=== PATIENT | female | born 1950 | race Caucasian/White ===

== ENCOUNTER 2017-08-17 12:12 | Inpatient (IN) ==
--- NOTE | 2017-08-17 11:23 | Anesthesia Evaluation PreOp ---
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 HX Other Medical History: GERD (large hiatal hernia) Anesthesia History: Past Anesthesia (vanessa, TEE, breast bx, bladder suspension) , Problems (severe PONV) : No Alcohol Use: none Drug use: none Medications and Allergies Albuterol Sulfate [Proair Hfa] 2 puff IH Q4H PRN 09/29/16 [History] Nitroglycerin [Nitrostat] 0.4 mg SL AD PRN 12/08/16 [History] Pantoprazole Sodium 40 mg PO BID 12/08/16 [History] Fluticasone Propionate Nasal [Flonase] 1 spr NS DAILY 06/08/17 [History] Montelukast [Singulair] 10 mg PO HS 06/08/17 [History] Cholecalciferol (D-3) [Vitamin D] 2,000 unit PO DAILY 08/17/17 [History] Loratadine [Claritin] 10 mg PO DAILY 08/17/17 [History] 3 Allergy/AdvReac Type Severity Reaction Status Date / Time Penicillins [PCN] Allergy See Verified 08/17/17 12:31 Comments - Meds/Allergy Pre-op Review Medications Reviewed: Yes Allergies Reviewed: Yes Beta Blockers on Current Med List: No Anesthesia Exam Selected Entries 08/17/17 12:33 Temperature 98.2 F Temperature Source Oral Pulse Rate 89 Respiratory Rate 18 Blood Pressure 126/81 O2 Sat by Pulse Oximetry 97 Weight: 55kg NPO (# of Hours): 8 - HEENT Pupil (Motor): EOMI Mallampati: II Teeth: Edentulous Oral Opening: Greater than 3 - SERVICES DELIVERY DRIVER LOC: Oriented SERVICES DELIVERY DRIVER Motor: Normal RUE, Normal LUE, Normal RLE, Normal LLE, Normal Face SERVICES DELIVERY DRIVER Sensory: Normal: RUE, LUE, RLE, LLE, Face - Cardiac Rhythm: Regular Murmur: None - Pulmonary Breath Sounds: bilateral Clear Respiratory Effort: Symmetrical Anesthesia Assess/Plan ASA Score: 2 Modified Java Scale for Level of Consciousness: Cooperative, oriented, and tranquil Anesthetic Plan: General Monitoring Plan: Standard Monitors Recovery Plan: PACU (agrees to GA)
[2017-08-17] MEDS ORDERED: Lidocaine -MPF 1% 2 ML VIAL ID ONE (12:51)
[2017-08-17] MEDS ORDERED: Albuterol 2.5 MG/3 ML NEBULIZER IH ONE (12:51)
[2017-08-17] MEDS ORDERED: CeFAZolin Syr 2,000MG/20 ML 2,000 MG/20 ML SYRINGE IVPB ONE (12:51)
[2017-08-17] MEDS ORDERED: Scopolamine Patch 1.5 MG PATCH.TD72 TD ONE (12:58)
[2017-08-17] MEDS ORDERED: Ringers Solution, Lactated 1,000 ML IVC SCH ×2 (13:00→18:47)
--- NOTE | 2017-08-17 14:07 | History & Physical Report ---
Date of Encounter: 08/17/17 Time of Encounter: 14:05 24 Hour HP Update - Instructions Instructions: If the History and Physical is less than 30 days old and was completed prior to A.M. admission and or procedure and has NOT been updated on calendar day of procedure please complete this update prior to performing procedure. - Update Patient reports changes in Medical Condition: No Changes in examination, assessment, or condition: No Changes in Medication: No Preop tests/diagnostics Reviewed: Yes Surgery Remains Indicated: Yes Consent for Planned Operative Procedure(s) Verified: Yes - Pre-Operative Checklist Preoperative Checklist Indicated: Yes Prophylactic Antibiotic Ordered: Yes Home Medications Include Beta Serjio: No Is VTE Prophylaxis Indicated?: Yes
[2017-08-17] MEDS ORDERED: *HR* FentaNYL (PF) 100 MCG/2 ML VIAL ONE (14:19)
[2017-08-17] MEDS ORDERED: *HR* Midazolam HCl 2 MG/2 ML VIAL ONE (14:19)
[2017-08-17] MEDS ORDERED: *HR* Propofol 200 MG/20 ML VIAL IVP ONE (14:20)
[2017-08-17] MEDS ORDERED: *HR* Succinylcholine 200 MG/10 ML VIAL IVP ONE (14:21)
[2017-08-17] MEDS ORDERED: *HR* Rocuronium Bromide 50 MG/5 ML VIAL ONE (14:21)
[2017-08-17] MEDS ORDERED: Lidocaine -MPF 2% 2 ML VIAL ONE (14:21)
[2017-08-17] MEDS ORDERED: Lidocaine -MPF 4% 5 ML AMPUL ONE (14:24)
[2017-08-17] MEDS ORDERED: Acetaminophen IV 1,000 MG/100 ML INFUS..BTL ONE (14:27)
[2017-08-17] MEDS ORDERED: CefOXitin 1,000 MG VIAL ONE (14:33)
[2017-08-17] MEDS ORDERED: Ondansetron 4 MG/2 ML VIAL ONE ×2 (14:59→17:41)
[2017-08-17] MEDS ORDERED: Haloperidol Lactate 5 MG/ML VIAL IVP ONE ×2 (15:00→18:47)
[2017-08-17] MEDS ORDERED: Propofol 500 MG/50 ML INFUS..BTL ONE (15:01)
[2017-08-17] MEDS ORDERED: Dexamethasone 4 MG/ML VIAL ONE (15:10)
[2017-08-17] MEDS ORDERED: *HR* PHENYLEPHRINE 1,000 MCG/10 ML SYRINGE IVP ONE (15:11)
[2017-08-17] MEDS ORDERED: Ketorolac 30 MG/ML VIAL ONE (17:13)
[2017-08-17] MEDS ORDERED: *HR* HYDROmorphone (PF) 1 MG/ML SYRINGE IVP PRN ×2 (17:20→18:47)
[2017-08-17] MEDS ORDERED: *HR* Promethazine 25 MG/ML VIAL IVP PRN ×2 (17:20→18:47)
[2017-08-17] MEDS ORDERED: *HR* OxyCODONE Immed Rel 5 MG TABLET PO PRN ×2 (17:20→18:47)
[2017-08-17] MEDS ORDERED: *HR* Labetalol 20 MG/4 ML SYRINGE IVP PRN (17:20)
[2017-08-17] MEDS ORDERED: Neostigmine Methylsulfate 3 MG/3 ML SYRINGE ONE (17:22)
[2017-08-17] MEDS ORDERED: Ondansetron 4 MG/2 ML VIAL IVP PRN (17:38)
[2017-08-17] MEDS ORDERED: OXYCODONE Oral CONC 10 MG/0.5 ML ORAL.SYG SL PRN (17:38)
[2017-08-17] MEDS ORDERED: 0.9 % Sodium Chloride 1,000 ML IVC SCH (17:45)
--- NOTE | 2017-08-17 17:45 | Operative Note ---
Date of procedure: 08/17/17 Pre-op diagnosis: Paraesophageal hernia, recurrent Post-op diagnosis: same Procedure: #1 open repair of paraesophageal hiatal hernia #2 takedown of Jaida fundoplication #3 redo Jaida fundoplication Anesthesia: TRELL Surgeon: Kulwinder Archer Was there an medical assistant secretary present: Yes Endodontics Dentist: Esther Castaneda Estimated blood loss (cc): 150 Specimen: None Condition: stable Disposition: PACU Procedure in Detail: After informed consent patient was taken to the major operating suite placed in the supine position given adequate general endotracheal anesthesia. The abdomen is prepped and draped in sterile fashion utilizing ChloraPrep and standard draping techniques. Timeout was taken and the patient is identified. Made an upper abdominal midline incision. I entered the abdomen. I performed lysis of adhesions between the stomach and the lateral segment of left lobe liver and some minor adhesions to the anterior abdominal wall. I divided the triangular ligament and folded the lateral segment of the left lobe inferiorly and laterally. I then spent one half hours dividing adhesions between the previous Jaida fundoplication and the right and left crura of the diaphragm. I also made a complete reduction of the paraesophageal hernia out of the chest. A lighted 50-[place] bougie was used to help identify and avoid injury to the esophagus. At the end of the one half hours of dissection I had taken down the last Jaida fundoplication and identified the right and left crura of the diaphragm. I then performed repair of the recurrent hiatal hernia with 3 stitches of 2-0 Ethibond with pledgets. 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 3 stitches were used 2 create a floppy Jaida fundoplication around a 50-[place] bougie. 2 shoulder stitches of 2-0 Ethibond were placed. Total blood loss 150 mL. The patient had an excellent technical result. Midline was closed with looped 0 PDS. The skin was closed with Vicryl and skin clips.
[2017-08-17] MEDS ORDERED: *HR* Heparin 5,000 UNIT/ML VIAL SQ SCH (18:00)
[2017-08-17] MEDS ORDERED: *HR* Labetalol 100 MG/20 ML MDV IVP PRN (18:47)
--- NOTE | 2017-08-17 18:53 | Anesthesia Evaluation Post Op ---
Date of Encounter: 08/17/17 Time of Encounter: 18:30 - Vital Signs Vital Signs: Vital Signs/O2 Sat/Glucose, Most Current Temp Pulse Resp BP Pulse Ox 08/17/17 18:19 98.5 F 75 20 107/78 100 08/17/17 18:09 98.5 F 78 20 115/72 99 08/17/17 17:59 79 20 115/64 98 08/17/17 17:49 82 20 110/71 96 08/17/17 17:39 99 F 87 16 129/78 100 - Lungs Lungs: Clear Ascult./Percussion - Airway Airway: Non-obstructed - Cardiovascular Regular Rate - Mental Status Mental Status: Alert & Oriented, Answers Appropriately - Pain Pain Scale: 0 - Nausea Vomiting Nausea Vomiting: Not Present - Hydration Hydration: NPO - Discharge PostOp Status: Transfer Patient to floor
[2017-08-17] MEDS: 0.9 % Sodium Chloride 1,000 ML IVC SCH (22:00)
[2017-08-17] MEDS: CeFAZolin Pre 2,000 MG/100 ML 2,000 MG/100 ML BAG IVPB SCH (23:59)
[2017-08-18] MEDS ORDERED: CeFAZolin Pre 2,000 MG/100 ML 2,000 MG/100 ML BAG IVPB SCH
[2017-08-18 05:44] LABS: Basophils % 0.3 %; Hematocrit 32.7 % (35.3-44.9); Immature Granulocytes % 0.5 % (0-4); Lymphocytes # 1.1 K/mcL (0.6-4.6); Lymphocytes % 10.5 %; Mean Corpuscular HGB Conc 33.6 g/dL (31.6-35.5); Mean Corpuscular Hemoglobin 31.9 pg (28.0-33.3); Mean Corpuscular Volume 94.8 fL (83.0-100.0); Mean Platelet Volume 9.9 fL (9.4-12.4); Monocytes # 0.8 K/mcL (0.0-1.3); Monocytes % 7.2 %; Neutrophils # 8.5 K/mcL (1.6-8.9); Platelet Count 239 K/mcL (140-400); Red Blood Count 3.45 M/mcL (3.82-4.97); Red Cell Distribution Width 13.4 % (11.5-14.5); Segmented Neutrophils % 81.5 %
[2017-08-18 05:51] LABS: BUN/Creatinine Ratio 19 (6-26); Blood Urea Nitrogen 15 mg/dL (8-23); Carbon Dioxide 26 mEq/L (23-29); Chloride 106 mEq/L (98-107); Glucose 117 mg/dL (70-105); Osmolality,Calculated 290 (280-300); Potassium 4.2 mEq/L (3.5-5.1); Sodium 139 mEq/L (136-145); eGFR For African Americans > 60 (> 60); eGFR For Non-African Americans > 60 (> 60)
[2017-08-18] MEDS: CeFAZolin Pre 2,000 MG/100 ML 2,000 MG/100 ML BAG IVPB SCH (06:43)
[2017-08-18] MEDS: *HR* Heparin 5,000 UNIT/ML VIAL SQ SCH ×2 (06:43→17:58)
--- NOTE | 2017-08-18 08:30 | General Surgery Progress Note ---
<Braulio Lucio - Last Filed: 08/18/17 12:02> Date of Encounter: 08/18/17 Time of Encounter: 06:30 - Assessment and Plan (1) Status post Jaida fundoplication Current Visit: Yes Status: Acute POD#1. open repair of paraesophageal hiatal hernia, takedown of Jaida fundoplication, redo Jaida fundoplication Pain well-controlled. Afebrile overnight. Vital signs stable. Patient started on clear liquid diets overnight and able to tolerate. - Continue clear liquid diet. Plan to advance to full liquid diet tomorrow if she continues to tolerate. NO CARBONATED DRINKS. - Continue current pain management regimen. - Continue IV fluids. (2) DVT prophylaxis Current Visit: Yes Status: Acute - Heparin 5000 U SQ BID. Subjective Narrative: Patient says her abdominal pain is diffuse is about a 3 out of 10. Denies any fever or chills overnight. Denies any nausea or vomiting. Denies any chest pain or shortness of breath. Denies any headaches, dizziness, or lightheadedness. Denies having a bowel movement and denies passing gas. Objective VITAL SIGNS: Reviewed. See [facility] GENERAL: no apparent distress. HEENT: [Normocephalic, PER, EOMi, oropharynx pink/moist, no JVD noted.] CV: b/l rad pulses 2+, RRR, no murmurs or gallops, no JVD RESPIRATORY: CTAB without wheezes, rales, or rhonchi ABD: soft, non-tender, no rebound/guarding/rigidity, no peritoneal signs. Hypoactive bowel sounds. INCISION: abdominal incision clean, dry, intact without purulence/bleeding/edema /rubor/calor EXTREMITY: grossly normal motor function, no pedal edema, peripheral pulses 2+ b /l NEUROLOGIC EXAM: AOx3, obeys commands, no speech deficits. PSYCHIATRIC: normal mood and affect SKIN: no gross lesions, rashes, or skin changes Vital Signs - Last 8 Hours Temp Pulse Resp BP Pulse Ox 08/18/17 06:33 98.2 F 78 15 110/74 97 08/18/17 03:43 98.5 F 81 16 127/82 98 Intake and Output 08/17/17 08/18/17 08/18/17 23:59 07:59 15:59 Intake Total 0 / 0 100 / 100 Output Total 150 / 150 100 / 100 Balance -150 / -150 0 / 0 Intake: IV Fluids 100 / 100 Ancef Premix 2,000 MG/100 ML 2, 100 / 100 000 mg In 100 ml @ 200 mls/hr IVPB Q8H [facility] Rx#:[id number] Oral 0 / 0 0 / 0 Output: Urine 0 / 0 Estimated Blood Loss 150 / 150 Catheter 100 / 100 Other: Weight 58 kg Patient Weight 08/18/17 23:59 Weight 58 kg - Labs 08/18/17 05:01 08/18/17 05:01 Diabetes panel 08/18/17 Range/Units 05:01 Sodium 139 (136-145) mEq/L Potassium 4.2 (3.5-5.1) mEq/L Chloride 106 (98-107) mEq/L Carbon Dioxide 26 (23-29) mEq/L BUN 15 (8-23) mg/dL Creatinine 0.78 (0.60-1.20) mg/dL Glucose 117 H (70-105) mg/dL Calcium 8.0 L (8.6-10.3) mg/dL Calcium panel 08/18/17 Range/Units 05:01 Calcium 8.0 L (8.6-10.3) mg/dL Pituitary panel 08/18/17 Range/Units 05:01 Sodium 139 (136-145) mEq/L Potassium 4.2 (3.5-5.1) mEq/L Chloride 106 (98-107) mEq/L Carbon Dioxide 26 (23-29) mEq/L BUN 15 (8-23) mg/dL Creatinine 0.78 (0.60-1.20) mg/dL Glucose 117 H (70-105) mg/dL Calcium 8.0 L (8.6-10.3) mg/dL Adrenal panel 08/18/17 Range/Units 05:01 Sodium 139 (136-145) mEq/L Potassium 4.2 (3.5-5.1) mEq/L Chloride 106 (98-107) mEq/L Carbon Dioxide 26 (23-29) mEq/L BUN 15 (8-23) mg/dL Creatinine 0.78 (0.60-1.20) mg/dL Glucose 117 H (70-105) mg/dL Calcium 8.0 L (8.6-10.3) mg/dL - VTE Documentation of Mechanical Device: Intermittent pneumatic compression device Consult Discharge Plan - Plan Referrals: Yesy Cardenas CNP [Advanced Practice Nurse] - 08/31/17 9:00 am <SuziHeathern Sonam - Last Filed: 08/18/17 15:35> Date of Encounter: 08/18/17 Objective Vital Signs - Last 8 Hours Temp Pulse Resp BP Pulse Ox 08/18/17 15:26 98.6 F 84 18 108/74 95 08/18/17 10:15 98.4 F 84 15 104/66 96 Intake and Output 08/17/17 08/18/17 08/18/17 23:59 07:59 15:59 Intake Total 0 / 0 100 / 100 1640 / 1640 Output Total 150 / 150 100 / 100 Balance -150 / -150 0 / 0 1640 / 1640 Intake: IV Fluids 100 / 100 1000 / 1000 0.9 % Sodium Chloride 1,000 ML 1000 / 1000 @ 75 mls/hr IVC .[id number] [facility] Rx #:[id number] Ancef Premix 2,000 MG/100 ML 2, 100 / 100 000 mg In 100 ml @ 200 mls/hr IVPB Q8H [facility] Rx#:[id number] Oral 0 / 0 0 / 0 640 / 640 Output: Urine 0 / 0 Estimated Blood Loss 150 / 150 Catheter 100 / 100 Other: Meal Clears Weight 58 kg Patient Weight 08/18/17 23:59 Weight 58 kg - Labs 08/18/17 05:01 08/18/17 05:01 Diabetes panel 08/18/17 Range/Units 05:01 Sodium 139 (136-145) mEq/L Potassium 4.2 (3.5-5.1) mEq/L Chloride 106 (98-107) mEq/L Carbon Dioxide 26 (23-29) mEq/L BUN 15 (8-23) mg/dL Creatinine 0.78 (0.60-1.20) mg/dL Glucose 117 H (70-105) mg/dL Calcium 8.0 L (8.6-10.3) mg/dL Calcium panel 08/18/17 Range/Units 05:01 Calcium 8.0 L (8.6-10.3) mg/dL Pituitary panel 08/18/17 Range/Units 05:01 Sodium 139 (136-145) mEq/L Potassium 4.2 (3.5-5.1) mEq/L Chloride 106 (98-107) mEq/L Carbon Dioxide 26 (23-29) mEq/L BUN 15 (8-23) mg/dL Creatinine 0.78 (0.60-1.20) mg/dL Glucose 117 H (70-105) mg/dL Calcium 8.0 L (8.6-10.3) mg/dL Adrenal panel 08/18/17 Range/Units 05:01 Sodium 139 (136-145) mEq/L Potassium 4.2 (3.5-5.1) mEq/L Chloride 106 (98-107) mEq/L Carbon Dioxide 26 (23-29) mEq/L BUN 15 (8-23) mg/dL Creatinine 0.78 (0.60-1.20) mg/dL Glucose 117 H (70-105) mg/dL Calcium 8.0 L (8.6-10.3) mg/dL - Attending Attestation I examined this patient and my medical decision-making was reviewed with the Resident Physician. I agree with the documented findings, disposition and treatment plan as described except to the extent set forth below. The patient is seen and evaluated on morning rounds with resident. She is doing surprisingly well and tolerating clear liquids. We will continue with supportive care and pain management. Advance diet as tolerated. Kulwinder Archer MD FACS
[2017-08-18] MEDS: 0.9 % Sodium Chloride 1,000 ML IVC SCH (13:23)
[2017-08-18] MEDS: OXYCODONE Oral CONC 10 MG/0.5 ML ORAL.SYG SL PRN ×2 (16:19→21:07)
[2017-08-18] MEDS: Ondansetron 4 MG/2 ML VIAL IVP PRN (16:19)
[2017-08-19] MEDS: Ondansetron 4 MG/2 ML VIAL IVP PRN ×3 (02:51→21:09)
[2017-08-19] MEDS: 0.9 % Sodium Chloride 1,000 ML IVC SCH ×2 (03:05→16:25)
[2017-08-19 05:36] LABS: Basophils % 0.3 %; Eosinophils # 0.1 K/mcL (0.0-0.6); Eosinophils % 1.4 %; Hemoglobin 10.2 g/dL (11.5-15.4); Immature Granulocytes % 0.4 % (0-4); Lymphocytes # 0.8 K/mcL (0.6-4.6); Lymphocytes % 10.8 %; Mean Corpuscular HGB Conc 32.9 g/dL (31.6-35.5); Mean Corpuscular Hemoglobin 31.6 pg (28.0-33.3); Mean Platelet Volume 9.6 fL (9.4-12.4); Monocytes # 0.5 K/mcL (0.0-1.3); Monocytes % 6.1 %; Platelet Count 221 K/mcL (140-400); Red Blood Count 3.23 M/mcL (3.82-4.97); Red Cell Distribution Width 13.7 % (11.5-14.5)
[2017-08-19 05:55] LABS: BUN/Creatinine Ratio 13 (6-26); Blood Urea Nitrogen 7 mg/dL (8-23); Carbon Dioxide 28 mEq/L (23-29); Chloride 107 mEq/L (98-107); Glucose 123 mg/dL (70-105); Osmolality,Calculated 285 (280-300); Potassium 3.7 mEq/L (3.5-5.1); Sodium 138 mEq/L (136-145); eGFR For African Americans > 60 (> 60); eGFR For Non-African Americans > 60 (> 60)
[2017-08-19] MEDS: *HR* Heparin 5,000 UNIT/ML VIAL SQ SCH ×2 (06:28→18:28)
[2017-08-19] MEDS: OXYCODONE Oral CONC 10 MG/0.5 ML ORAL.SYG SL PRN ×2 (09:10→16:25)
--- NOTE | 2017-08-19 11:09 | General Surgery Progress Note ---
<CiarrachuckBraulio jacobo - Last Filed: 08/19/17 15:38> Date of Encounter: 08/19/17 Time of Encounter: 08:15 - Assessment and Plan (1) Status post Jaida fundoplication Current Visit: Yes Status: Acute POD#2. open repair of paraesophageal hiatal hernia, takedown of Jaida fundoplication, redo Jaida fundoplication Pain well-controlled. Afebrile overnight. Vital signs stable. Patient on clear liquid diets. - Continue clear liquid diet. NO CARBONATED DRINKS. - Colace 100 mg BID. - Nicotine patch. - Continue current pain management regimen. - Continue IV fluids. (2) DVT prophylaxis Current Visit: Yes Status: Acute - Heparin 5000 U SQ BID. Subjective Narrative: Patient says that she has minor abdominal discomfort over her incisional area. She admits to some nausea but denies any vomiting. Denies any chest pain or shortness of breath. Denies any fever or chills. Denies any bowel movement or passing gas. Objective VITAL SIGNS: Reviewed. See [facility] GENERAL: No apparent distress. HEENT: [Normocephalic, PER, EOMI, oropharynx pink/moist, no JVD noted.] CV: b/l rad pulses 2+, RRR, no murmurs or gallops, no JVD RESPIRATORY: CTAB without wheezes, rales, or rhonchi ABD: soft, minor tenderness to palpation over incisional area, no rebound/ guarding/rigidity, no peritoneal signs. Hypoactive bowel sounds present. INCISION: abdominal incision clean, dry, intact without purulence/bleeding/edema /rubor/calor EXTREMITY: grossly normal motor function, no pedal edema, peripheral pulses 2+ b /l NEUROLOGIC EXAM: AOx3, obeys commands, no speech deficits. PSYCHIATRIC: normal mood and affect SKIN: no gross lesions, rashes, or skin changes Vital Signs - Last 8 Hours Temp Pulse Resp BP Pulse Ox 08/19/17 11:01 98.1 F 79 16 134/83 90 08/19/17 07:46 98.6 F 83 14 129/81 91 08/19/17 03:17 98.5 F 88 17 133/82 93 Intake and Output 08/18/17 08/19/17 08/19/17 23:59 07:59 15:59 Intake Total 240 / 240 1120 / 1120 60 / 60 Output Total 700 / 700 0 / 0 200 / 200 Balance -460 / -460 1120 / 1120 -140 / -140 Intake: IV Fluids 1000 / 1000 0.9 % Sodium Chloride 1,000 ML 1000 / 1000 @ 75 mls/hr IVC .[id number] [facility] Rx #:[id number] Oral 240 / 240 120 / 120 60 / 60 Output: Urine 0 / 0 200 / 200 Catheter 700 / 700 Other: Meal Dinner Percent of Meal Consumed 100% # Voids 2 Weight 58 kg Patient Weight 08/19/17 23:59 Weight 58 kg - Labs 08/19/17 05:21 08/19/17 05:21 Diabetes panel 08/19/17 Range/Units 05:21 Sodium 138 (136-145) mEq/L Potassium 3.7 (3.5-5.1) mEq/L Chloride 107 (98-107) mEq/L Carbon Dioxide 28 (23-29) mEq/L BUN 7 L (8-23) mg/dL Creatinine 0.53 L (0.60-1.20) mg/dL Glucose 123 H (70-105) mg/dL Calcium 8.0 L (8.6-10.3) mg/dL Calcium panel 08/19/17 Range/Units 05:21 Calcium 8.0 L (8.6-10.3) mg/dL Pituitary panel 08/19/17 Range/Units 05:21 Sodium 138 (136-145) mEq/L Potassium 3.7 (3.5-5.1) mEq/L Chloride 107 (98-107) mEq/L Carbon Dioxide 28 (23-29) mEq/L BUN 7 L (8-23) mg/dL Creatinine 0.53 L (0.60-1.20) mg/dL Glucose 123 H (70-105) mg/dL Calcium 8.0 L (8.6-10.3) mg/dL Adrenal panel 08/19/17 Range/Units 05:21 Sodium 138 (136-145) mEq/L Potassium 3.7 (3.5-5.1) mEq/L Chloride 107 (98-107) mEq/L Carbon Dioxide 28 (23-29) mEq/L BUN 7 L (8-23) mg/dL Creatinine 0.53 L (0.60-1.20) mg/dL Glucose 123 H (70-105) mg/dL Calcium 8.0 L (8.6-10.3) mg/dL - VTE Documentation of Mechanical Device: Intermittent pneumatic compression device Consult Discharge Plan - Plan Referrals: Yesy Cardenas, COR[employer]UAL [employer]S THERAPIST [Advanced Practice Nurse] - 08/31/17 9:00 am <Ludivina Villalpando - Last Filed: 08/19/17 16:03> Date of Encounter: 08/19/17 Time of Encounter: 12:00 - Assessment and Plan (1) DVT prophylaxis Current Visit: Yes Status: Acute (2) Status post Jaida fundoplication Current Visit: Yes Status: Acute tolerating clears prn pain medication, decrease dose as pain controlled, if still gets nauseated will start percocet, ensure doesnt take on empty stomach ok nicotine patch ambulate IS gi/dvt prophylaxis Subjective Patient reports: no new complaints, still having pain, pain is less, tolerating liquids well, flatus, no bowel movement, afebrile Narrative: complains of nausea wiht pain medication despite taking zofran beforehand Objective Vital Signs - Last 8 Hours Temp Pulse Resp BP Pulse Ox 08/19/17 11:01 98.1 F 79 16 134/83 90 Intake and Output 08/18/17 08/19/17 08/19/17 23:59 07:59 15:59 Intake Total 240 / 240 1120 / 1120 60 / 60 Output Total 700 / 700 0 / 0 200 / 200 Balance -460 / -460 1120 / 1120 -140 / -140 Intake: IV Fluids 1000 / 1000 0.9 % Sodium Chloride 1,000 ML 1000 / 1000 @ 75 mls/hr IVC .[id number] [facility] Rx #:[id number] Oral 240 / 240 120 / 120 60 / 60 Output: Urine 0 / 0 200 / 200 Catheter 700 / 700 Other: Meal Dinner Percent of Meal Consumed 100% # Voids 2 Weight 58 kg Patient Weight 08/19/17 23:59 Weight 58 kg - General physical appearance well developed, well nourished, no distress - Eyes PERRL, normal ocular movement - ENT normal mucosa, normocephalic - Neck Neck exam: trachea midline - Respiratory normal expansion, normal respiratory effort - Cardiovascular Cardiovascular exam: Present: RRR - Abdomen Abdomen: Present: bowel sounds present, soft, tender (expected post op tenderness). Absent: distended, guarding, rebound - Incision Incision: Present: clean and dry, intact - Integumentary no rash, no growths - Neurologic normal coordination - Musculoskeletal normal posture - Psychiatric oriented to time, oriented to person, oriented to place, memory intact - Labs 08/19/17 05:21 08/19/17 05:21 Diabetes panel 08/19/17 Range/Units 05:21 Sodium 138 (136-145) mEq/L Potassium 3.7 (3.5-5.1) mEq/L Chloride 107 (98-107) mEq/L Carbon Dioxide 28 (23-29) mEq/L BUN 7 L (8-23) mg/dL Creatinine 0.53 L (0.60-1.20) mg/dL Glucose 123 H (70-105) mg/dL Calcium 8.0 L (8.6-10.3) mg/dL Calcium panel 08/19/17 Range/Units 05:21 Calcium 8.0 L (8.6-10.3) mg/dL Pituitary panel 08/19/17 Range/Units 05:21 Sodium 138 (136-145) mEq/L Potassium 3.7 (3.5-5.1) mEq/L Chloride 107 (98-107) mEq/L Carbon Dioxide 28 (23-29) mEq/L BUN 7 L (8-23) mg/dL Creatinine 0.53 L (0.60-1.20) mg/dL Glucose 123 H (70-105) mg/dL Calcium 8.0 L (8.6-10.3) mg/dL Adrenal panel 08/19/17 Range/Units 05:21 Sodium 138 (136-145) mEq/L Potassium 3.7 (3.5-5.1) mEq/L Chloride 107 (98-107) mEq/L Carbon Dioxide 28 (23-29) mEq/L BUN 7 L (8-23) mg/dL Creatinine 0.53 L (0.60-1.20) mg/dL Glucose 123 H (70-105) mg/dL Calcium 8.0 L (8.6-10.3) mg/dL Vital Signs Temp Pulse Resp BP Pulse Ox 08/19/17 11:01 98.1 F 79 16 134/83 90 08/19/17 07:46 98.6 F 83 14 129/81 91 08/19/17 03:17 98.5 F 88 17 133/82 93 08/18/17 19:00 98.3 F 85 16 105/71 94 Intake and Output 08/19/17 08/19/17 08/19/17 07:59 15:59 23:59 Intake Total 1120 / 1120 60 / 60 Output Total 0 / 0 200 / 200 Balance 1120 / 1120 -140 / -140 Intake: IV Fluids 1000 / 1000 0.9 % Sodium Chloride 1,000 ML 1000 / 1000 @ 75 mls/hr IVC .[id number] [facility] Rx #:[id number] Oral 120 / 120 60 / 60 Output: Urine 0 / 0 200 / 200 Other: # Voids 2 Weight 58 kg Patient Weight 08/19/17 23:59 Weight 58 kg - Attending Attestation I examined this patient and my medical decision-making was reviewed with the Resident Physician. I agree with the documented findings, disposition and treatment plan as described except to the extent set forth below.
[2017-08-19] MEDS: Nicotine 7 MG PATCH.TD24 TD SCH (13:09)
[2017-08-19] MEDS: *HR* Promethazine 25 MG/ML VIAL IVP PRN (16:25)
[2017-08-20] MEDS: OXYCODONE Oral CONC 10 MG/0.5 ML ORAL.SYG SL PRN ×4 (00:29→22:16)
[2017-08-20] MEDS: *HR* Promethazine 25 MG/ML VIAL IVP PRN ×2 (00:29→15:33)
[2017-08-20 03:36] LABS: Basophils % 0.3 %; Eosinophils # 0.1 K/mcL (0.0-0.6); Eosinophils % 1.2 %; Hematocrit 28.8 % (35.3-44.9); Hemoglobin 9.9 g/dL (11.5-15.4); Immature Granulocytes % 0.4 % (0-4); Lymphocytes # 1.1 K/mcL (0.6-4.6); Mean Corpuscular HGB Conc 34.4 g/dL (31.6-35.5); Mean Corpuscular Hemoglobin 33.1 pg (28.0-33.3); Mean Corpuscular Volume 96.3 fL (83.0-100.0); Mean Platelet Volume 10.1 fL (9.4-12.4); Monocytes # 0.6 K/mcL (0.0-1.3); Monocytes % 7.3 %; Platelet Count 207 K/mcL (140-400); Red Blood Count 2.99 M/mcL (3.82-4.97); Red Cell Distribution Width 13.4 % (11.5-14.5); Segmented Neutrophils % 76.8 %
[2017-08-20 04:15] LABS: BUN/Creatinine Ratio 11 (6-26); Blood Urea Nitrogen 6 mg/dL (8-23); Calcium 7.9 mg/dL (8.6-10.3); Carbon Dioxide 22 mEq/L (23-29); Chloride 107 mEq/L (98-107); Glucose 102 mg/dL (70-105); Osmolality,Calculated 280 (280-300); Potassium 3.9 mEq/L (3.5-5.1); Sodium 136 mEq/L (136-145); eGFR For African Americans > 60 (> 60); eGFR For Non-African Americans > 60 (> 60)
[2017-08-20] MEDS: *HR* Heparin 5,000 UNIT/ML VIAL SQ SCH ×2 (06:39→18:27)
[2017-08-20] MEDS: 0.9 % Sodium Chloride 1,000 ML IVC SCH ×2 (07:49→23:58)
[2017-08-20] MEDS: Ondansetron 4 MG/2 ML VIAL IVP PRN ×2 (07:50→22:16)
[2017-08-20] MEDS: Nicotine 7 MG PATCH.TD24 TD SCH (07:51)
--- NOTE | 2017-08-20 15:49 | General Surgery Progress Note ---
Date of Encounter: 08/20/17 Time of Encounter: 15:47 - Assessment and Plan (1) DVT prophylaxis Current Visit: Yes Status: Acute (2) Status post Jaida fundoplication Current Visit: Yes Status: Acute tolerating clears prn pain medication adequate ok nicotine patch ambulate IS gi/dvt prophylaxis dc planning Subjective Patient reports: no new complaints, feels better, still having pain, pain is less, tolerating liquids well, flatus, bowel movement, afebrile Objective Vital Signs - Last 8 Hours Temp Pulse Resp BP Pulse Ox 08/20/17 07:49 98.6 F 87 16 137/88 91 Intake and Output 08/19/17 08/20/17 08/20/17 23:59 07:59 15:59 Intake Total 1460 / 1460 1420 / 1420 840 / 840 Output Total 150 / 150 800 / 800 800 / 800 Balance 1310 / 1310 620 / 620 40 / 40 Intake: IV Fluids 1100 / 1100 1000 / 1000 0.9 % Sodium Chloride 1,000 ML 1000 / 1000 1000 / 1000 @ 75 mls/hr IVC .[id number] [facility] Rx #:[id number] Oral 360 / 360 420 / 420 840 / 840 Output: Urine 150 / 150 800 / 800 800 / 800 Other: Meal Dinner Lunch Percent of Meal Consumed 100% Stool Size Moderate Stool Consistency soft # Voids 1 1 # Bowel Movements 2 Weight 60.25 kg Patient Weight 08/20/17 23:59 Weight 60.25 kg - General physical appearance well nourished, no distress - Eyes normal ocular movement - ENT normal mucosa, normocephalic - Respiratory normal expansion, clear to auscultation - Cardiovascular Cardiovascular exam: Present: RRR - Abdomen Abdomen: Present: bowel sounds present, soft, tender (appropriate post op tenderness). Absent: guarding, rebound - Incision Incision: Present: clean and dry, intact - Integumentary no rash, no growths - Neurologic normal coordination - Musculoskeletal normal posture - Psychiatric oriented to time, oriented to person, oriented to place, speech is normal, memory intact - Labs 08/20/17 03:02 08/20/17 03:02 Diabetes panel 08/20/17 Range/Units 03:02 Sodium 136 (136-145) mEq/L Potassium 3.9 (3.5-5.1) mEq/L Chloride 107 (98-107) mEq/L Carbon Dioxide 22 L (23-29) mEq/L BUN 6 L (8-23) mg/dL Creatinine 0.55 L (0.60-1.20) mg/dL Glucose 102 (70-105) mg/dL Calcium 7.9 L (8.6-10.3) mg/dL Calcium panel 08/20/17 Range/Units 03:02 Calcium 7.9 L (8.6-10.3) mg/dL Pituitary panel 08/20/17 Range/Units 03:02 Sodium 136 (136-145) mEq/L Potassium 3.9 (3.5-5.1) mEq/L Chloride 107 (98-107) mEq/L Carbon Dioxide 22 L (23-29) mEq/L BUN 6 L (8-23) mg/dL Creatinine 0.55 L (0.60-1.20) mg/dL Glucose 102 (70-105) mg/dL Calcium 7.9 L (8.6-10.3) mg/dL Adrenal panel 08/20/17 Range/Units 03:02 Sodium 136 (136-145) mEq/L Potassium 3.9 (3.5-5.1) mEq/L Chloride 107 (98-107) mEq/L Carbon Dioxide 22 L (23-29) mEq/L BUN 6 L (8-23) mg/dL Creatinine 0.55 L (0.60-1.20) mg/dL Glucose 102 (70-105) mg/dL Calcium 7.9 L (8.6-10.3) mg/dL - VTE Documentation of Mechanical Device: Intermittent pneumatic compression device Consult Discharge Plan - Plan Referrals: Yesy Cardenas CNP [Advanced Practice Nurse] - 08/31/17 9:00 am
[2017-08-21] MEDS: 0.9 % Sodium Chloride 1,000 ML IVC SCH (02:45)
[2017-08-21] MEDS: *HR* Heparin 5,000 UNIT/ML VIAL SQ SCH (06:25)
[2017-08-21] MEDS: Nicotine 7 MG PATCH.TD24 TD SCH (07:24)
--- NOTE | 2017-08-21 07:49 | Discharge Summary ---
<PadillaKylah Sean - Last Filed: 08/21/17 08:14> Orders not resulted at time of discharge: Pending orders 08/17/17 14:41 Haloperidol Stat Date of Encounter: 08/21/17 Time of Encounter: 07:55 - Discharge Diagnosis (1) GERD (gastroesophageal reflux disease) Priority: Primary Status: Acute Qualifiers: Esophagitis presence: with esophagitis Qualified Code(s): K21.0 - Gastro- esophageal reflux disease with esophagitis (2) DVT prophylaxis Priority: Secondary Status: Acute (3) Status post Jaida fundoplication Priority: Primary Status: Resolved (4) Smoking Priority: Secondary Status: Acute General Surgery Exam Initial Vital Signs Temp Pulse Resp BP Pulse Ox 98.2 F 89 18 126/81 97 08/17/17 12:33 08/17/17 12:33 08/17/17 12:33 08/17/17 12:33 08/17/17 12:33 VITAL SIGNS: Reviewed. See [facility] GENERAL: In no apparent distress. HEENT: Normocephalic, atraumatic, pupils are equal and reactive, extraocular motions intact, oropharynx is pink and moist, there is no neck adenopathy or JVD noted. CHEST/RESPIRATORY: The thorax is free from signs of trauma. Lung sounds: clear to auscultation, normal respiratory effort CARDIAC: Regular rate and rhythm. Normal S1 and S2, without murmurs, gallops, or rubs. VASCULAR: No Edema. 2+ peripheral pulses. ABDOMEN: soft, expected postoperative tenderness, denies reflux, active bowel sounds INCISION: Surgical incision is clean, dry, and intact. There are no signs of cellulitis or infection noted. MUSCULOSKELETAL: Good range of motion of all major joints. Extremities without clubbing, cyanosis or edema. NEUROLOGIC EXAM: Alert and oriented x 3. Speech normal. Follows commands. PSYCHIATRIC: Mood normal. SKIN: No rash or lesions. - Hospital Course Hospital course: Ms. Severino is a 67 year old female who presented on 08/17/2017 for recurrent paraesophageal hernia. She was taken to the operating room by Dr. Archer where she underwent a #1 open repair of paraesophageal hiatal hernia, # 2 takedown of Jaida fundoplication, # 3 redo Jaida fundoplication. Her hospital course has been uncomplicated. She is tolerating the thin liquids without vomiting. She does report some nausea that is relieved by Zofran. She is ambulating and voiding without difficulty, tolerating liquids, vital signs are stable, she is afebrile, and her abdominal discomfort is well-controlled. We will begin discharge planning to home with a follow-up in the office in approximately 2 weeks. - Time Spent with Patient Total time spent providing and/or coordinating discharge services: - Discharge Medications Prescriptions: OxyCODONE/APAP 5/325 [Percocet 5/325 MG] 1 each PO Q4HR PRN 7 Days #28 tablet PRN Reason: Acute postoperative pain Ibuprofen [Motrin] 800 mg PO Q8HR 30 Days #90 tablet Docusate Sodium [Colace] 100 mg PO BID PRN 15 Days #30 capsule PRN Reason: Constipation Nicotine Patch [Nicoderm] 7 mg TD DAILY #30 patch.[id number] Ondansetron ODT [Zofran ODT] 4 mg PO Q4H #30 tab.rapdis Home Medications: Albuterol Sulfate [Proair Hfa] 2 puff IH Q4H PRN 09/29/16 [History] Nitroglycerin [Nitrostat] 0.4 mg SL AD PRN 12/08/16 [History] Pantoprazole Sodium 40 mg PO BID 12/08/16 [History] Fluticasone Propionate Nasal [Flonase] 1 spr NS DAILY 06/08/17 [History] Montelukast [Singulair] 10 mg PO HS 06/08/17 [History] Cholecalciferol (D-3) [Vitamin D] 2,000 unit PO DAILY 08/17/17 [History] Loratadine [Claritin] 10 mg PO DAILY 08/17/17 [History] Docusate Sodium [Colace] 100 mg PO BID PRN 15 Days #30 capsule 08/21/17 [Rx] Ibuprofen [Motrin] 800 mg PO Q8HR 30 Days #90 tablet 08/21/17 [Rx] Nicotine Patch [Nicoderm] 7 mg TD DAILY #30 patch.td24 08/21/17 [Rx] Ondansetron ODT [Zofran ODT] 4 mg PO Q4H #30 tab.rapdis 08/21/17 [Rx] OxyCODONE/APAP 5/325 [Percocet 5/325 MG] 1 each PO Q4HR PRN 7 Days #28 tablet [Rx] Allergies/Adverse Reactions: 3 Allergy/AdvReac Type Severity Reaction Status Date / Time Penicillins [PCN] Allergy See Verified 08/17/17 12:31 Comments Date of admission: 08/17/17 18:33 Primary care physician: GHISLAINE Wilkinson Discharging clinician: Kulwinder Causey) - Patient Status Disposition: Home, Self-Care Condition: Good Functional capacity at discharge: independent ambulation Overall status at discharge: patient is progressing back to baseline - Discharge Instructions Instructions: How to Stop Smoking (GEN), Cigarette Smoking and Your Health (GEN ), Adult Laparoscopic Jaida Fundoplication (DC) Follow Up With: Yesy Cardenas CNP [Advanced Practice Nurse] - 08/31/17 9:00 am Forms: Work/School Release Additional Instructions: General Instructions After Jaida Surgery 1. No pushing, pulling, or lifting greater than 15 lbs for two weeks. 2. You may shower beginning today, but no tub baths, soaking, or swimming for 2 weeks. 3. You may resume driving when you are off narcotics and are safe to react in a car. 4. Take narcotics as directed. Do not take more narcotics then directed and do not share your narcotics with any other person. Do not drink alcohol while on narcotics. 5. Take stool softeners (Colace) or a water based laxative (Miramax) while taking narcotics. You may hold for loose stools. 6. Report any fevers greater than 100.5F, increase abdominal discomfort, drainage that looks like pus, increased redness or pain at the surgical site, or any vomiting. 7. Report any pain in the calves, shortness of breath, or rapid heartbeat. 8. Continue to take your heartburn medications until directed to stop. Do not stop them abruptly as this can cause symptoms of reflux. 9. Do not drink alcohol or carbonated beverages. 10. Do not deviate from the recommended Jaida diet below. Doing so can affect your outcomes. 11. You have been given a prescription for smoking cessation. You will need to follow-up with your PCP to continue this. Smoking cessation is highly recommended as smoking and delays the healing process and contributes to Gerd symptoms. Do not stop your PPI (omerprazole and Nexxium) therapy until directed by the surgeon. [facility] Diet After Jaida Fundoplication Surgery This diet information is for patients who have recently had Jaida Fundoplication Surgery to correct reflux disease or to repair various types of hernias, such as hiatal hernia and intrathoracic stomach. This diet may also be used for other gastrointestinal surgeries, such as Heller myotomy and repair of achalasia. The diet will help control diarrhea, excess gas and swallowing problems, which may occur after this type of surgery. Important Steps to Keep Your Stomach From Stretching Eat small, frequent meals (six to eight per day). This will help you consume the majority of the nutrients you need without causing your stomach to feel full or distended. Drinking large amounts of fluids with meals can stretch your stomach. You may drink fluids between meals as often as you like, but limit fluids to 1/2 cup (4 fluid ounces) with meals and one cup (8 fluid ounces) with snacks. Sit upright while eating, and stay upright for 30 minutes after each meal. [place] can help food move through your digestive tract. Do not lie down after eating. Sit upright for 2 hours after your last meal or snack of the day. Eat very slowly. Take your time when eating. Take small bites and chew your food well to circular knitter helper in swallowing and digestion. Avoid crusty breads and sticky, gummy foods, such as bananas, fresh doughy breads, rolls and doughnuts. These types of foods become sticky and difficult to swallow. Toasted breads tend to be better tolerated. Lastly, if you eat sweets, consume them at the end of your meal to avoid a group of symptoms referred to as dumping syndrome. This describes the rapid emptying of foods from the stomach to the small intestine. Sweetened beverages, candy and desserts move more rapidly and dump quickly into the intestines. This can cause symptoms of nausea, weakness, cold sweats, cramps, diarrhea and dizzy spells. Important Steps to Avoid Gas Do not drink through a straw, chew gum, or chew tobacco. These actions cause you to swallow air, which will produce excess gas in your stomach. Chew with your mouth closed and chew your food thoroughly. Avoid foods that cause stomach gas and distention. The foods include corn, dried beans, peas, lentils, onions, broccoli, cauliflower, and any food item from the cabbage family. Do not drink carbonated drinks, alcohol, citrus, or tomato products. What Will I Be Able To Eat and Drink After Surgery After Jaida Fundoplication Surgery, your diet will be advanced slowly by your surgeon. Generally, you will be on a thin/clear liquid diet for the first 10 days. Then you will advance to the full liquid diet for 4 days and eventually to a Jaida soft diet for 7 days. After any surgery, protein consumption is important for healing. To get enough protein, drink 3-4 [place] Instant Breakfast, Ensure, or equivalent daily. Reminder: Carbonated beverages (such as sodas, energy drinks, flavored carbonated water), and alcohol are not permitted for the 1st 6 to 8 weeks after surgery. After this time you may attempt to reintroduce them in small amounts. Please note: Dairy products such as milk, ice cream, and pudding may cause diarrhea in some people after surgery. You may need to avoid milk products. If so you may substitute them with lactose free beverages, such as soy, rice, lactate, or almond milk. Please be aware that each patient's tolerance to food is different. Your doctor will advance your diet depending on how well you progress after surgery. Thin Liquid Diet The first diet after Jaida Fundoplication Surgery is the thin liquids diet. Follow this diet for postoperative days 1-10 08/18- 08/27/17. Thin liquids include: Apple, Cranberry, or Grape Juice (no citrus juice) Chicken Broth Beef Broth Flavored Gelatin (Jell-O) Decaffeinated Tea or Coffee Popsicles or Cuban Ice Caffeinated Beverages Will Be Permitted Based upon Tolerance and at a later date Dairy if tolerated Thin Milkshakes (strawberry or vanilla flavored- No chocolate) Drink 3-4 [place] instant breakfast, Ensure, or equivalent daily. May be mixed with dairy for thin milkshakes Full Liquid Diet Follow this diet for postoperative days 11-140/ - 08/31/2017. Full liquid diet includes anything in the thin liquid diet plus: Milk: Dairy, Soy, Rice, and [place] (No Chocolate) Cream of Wheat, Cream of Rice, Grits Strained Creamed Soups (No Tomato or Broccoli) Vanilla and [place] Flavored Ice Cream Sherbet Vanilla and Butterscotch Pudding (No Chocolate or Coconut) Continue 3-4 [place] Instant Breakfast, Ensure, or an Equivalent Daily. May be mixed with Dairy for Thin Milkshakes. Jaida Soft Diet Follow this diet for postoperative days 15-20 09/01 - 09/05/2017. (If you are consuming enough protein, you may stop the protein supplements). Please note: You will need extra fluids throughout the day to meet your fluid needs. - Diet and Activity Activity: increase activity as tolerated Diet: other (Do not deviate from the Jaida diet) <Kulwinder Archer - Last Filed: 08/22/17 13:19> Date of Encounter: 08/21/17 General Surgery Exam Initial Vital Signs Temp Pulse Resp BP Pulse Ox 98.2 F 89 18 126/81 97 08/17/17 12:33 08/17/17 12:33 08/17/17 12:33 08/17/17 12:33 08/17/17 12:33 - Hospital Course Hospital course: Ms. Severino is a 67 year old female - Time Spent with Patient Total time spent providing and/or coordinating discharge services: Date of admission: 08/17/17 18:33 Primary care physician: GHISLAINE Wilkinson - Attending Attestation I examined this patient and my medical decision-making was reviewed with the Resident Physician. I agree with the documented findings, disposition and treatment plan as described except to the extent set forth below. The patient is seen and evaluated on morning rounds with the resident. She is essentially pain-free and has no reflux symptoms. She is tolerating diet. Ready for discharge. The clinical nurse practitioner will meet with her concerning dietary restrictions and progress Kulwinder Archer MD FACS
[2017-08-21] MEDS: Ondansetron 4 MG/2 ML VIAL IVP PRN (09:33)
[2017-08-21] MEDS: OXYCODONE Oral CONC 10 MG/0.5 ML ORAL.SYG SL PRN (09:33)
[2017-08-21 10:40] VITALS: BP 126/80
== END 2017-08-21 15:10 | disposition home or self-care (01) | DRG 328 ==
LOC: SAMDAY 12:12 → 3ANU 18:33
PROVIDERS: ADMIT Surgery; ATTEND Surgery